=== PATIENT | female | born 1945 | race Caucasian/White ===

== ENCOUNTER → 2020-06-11 | Outpatient (CLI) | payer MEDICARE ==
[~2020-06-11] MED LIST: ALLEGRA 180MG180 MG PO; ASPIRIN 81M81 MG/TA2 PO; BUMEX 1MG TA1 MG/TA1 PO; CALCIUM 600 MG1 EAC2 PO; COZAAR 50MG50 MG/TAB PO; GLUCOSAMINE CHO1 TAB PO; L-GLUTAMINE500 M5 PO; MAGNESIUM200 MG PO; MASON NATURAL600 MG PO; NATURAL POTASS595 MG PO; NEURONTIN300 MG/CAP PO; ONE DAILY MULTI1 TA1; TAMBOCOR 1100 MG/TAB PO; TAMOXIFEN CITRA20 MG PO; THE MEDICINE S200 M2 PO; TOPROL XL 25MG25 MG PO; VITAMIN B COMPL1 SGL PO; VITAMIN B122500 MCG SL; VITAMINC1000TA PO
[2020-06-11 09:16] LABS: CALCIUM 9.8 mg/dL (8.4-10.2); CREATININE, serum 1.49 (0.52-1.25)
== END ==
LOC: COL.LAB
PROVIDERS: Internal Medicine Nephrology
DX: N17.9 Acute kidney failure, unspecified (principal)